=== PATIENT | female | born 1975 | race Caucasian/White ===

== ENCOUNTER 2018-05-29 14:13 | Day surgery (SDC) | payer OTHER ==
[~2018-05-29 14:13] MED LIST: Dexamethasone 20 MG/5 ML VIAL ONE; Ketorolac Tromethamine 30 MG/ML VIAL ONE; Lidocaine 1% PF 5 ML VIAL ONE; Ondansetron PF 4 MG/2 ML Vial ONE; PHENYLEPHRINE-NS 100 MCG/ML 10 ML SYRINGE ONE; PROPOFOL 200 MG/20 ML VIAL ONE; ePHEDrine 50 MG/ML VIAL ONE
[2018-05-29] MEDS ORDERED: Adacel (T-DAP) 0.5 ML SYRINGE ONE (14:44)
[2018-05-29] MEDS ORDERED: Ondansetron PF 4 MG/2 ML Vial ONE (15:04)
[2018-05-29] MEDS ORDERED: Morphine 4 MG/ML VIAL ONE (15:04)
[2018-05-29 15:06] LABS: #Lymphocytes 1.8 thou/uL (1.20-3.40); #Monocytes 0.4 thou/uL (0.11-0.59); #Neutrophils 8.2 thou/uL (1.40-6.50); %Basophils 0.3 % (0.0-1.0); %Eosinophils 0.4 % (0.0-10.0); %Lymphocytes 16.8 % (21.0-51.0); %Monocytes 3.7 % (0.0-10.0); %Neutrophils 78.7 % (42.0-75.0); Hemoglobin 12.1 g/dL (12.0-16.0); Mean Corpuscular HGB CONC 31.3 g/dL (32.0-36.0); Mean Corpuscular Hemoglobin 29.1 pg (27.0-31.0); Mean Corpuscular Volume 92.9 fL (78.0-98.0); Mean Platelet Volume 8.4 fL (7.4-10.4); Platelet Count 334 thou/uL (130-400); Red Blood Cell (RBC) Count 4.17 mill/uL (4.20-5.40); White Blood Cell (WBC) Count 10.4 thou/uL (4.8-10.8)
[2018-05-29 15:24] LABS: ALT (SGPT) 12 U/L (8-55); AST (SGOT) 15 U/L (5-34); Albumin 4.4 g/dL (3.5-5.0); Alkaline Phosphatase 68 U/L (40-150); Anion Gap 14 mmol/L (10-20); BUN (Urea Nitrogen) 12 mg/dL (7.0-18.7); Bilirubin, Total 0.3 mg/dL (0.2-1.2); Calc. Creatinine Clearance 0 mL/min (70-130); Calcium 9.1 mg/dL (7.8-10.44); Carbon Dioxide 21 mmol/L (22-29); Chloride 108 mmol/L (98-107); Estimated GFR-MDRD 78; Globulin 2.9 g/dL (2.4-3.5); Glucose 97 mg/dL (70-105); Potassium 3.9 mmol/L (3.5-5.1); Protein, Total 7.3 g/dL (6.0-8.3); Sodium 139 mmol/L (136-145)
[2018-05-29] MEDS ORDERED: Neomycin-Polymyxin 1 ML AMP ONE (16:13)
[2018-05-29] MEDS ORDERED: Fentanyl 100 MCG/2 ML VIAL ONE (16:13)
[2018-05-29] MEDS ORDERED: Bupivacaine PF 0.5% 30 ML VIAL ONE (16:13)
[2018-05-29] MEDS ORDERED: Bupivacaine HCl 0.5%/Epinephrine 1:200,000/PF 30 ml Vial ONE (16:13)
[2018-05-29] MEDS ORDERED: Famotidine/PF 20 mg/2ml Vial ONE (16:23)
[2018-05-29] MEDS ORDERED: Midazolam HCl 2 mg/2 ml Vial ONE (16:23)
--- NOTE | 2018-05-29 18:05 | RAD ---
INTRAPROCEDURE FLUOROSCOPY: History: Foreign body removal. Comparison: None. FINDINGS: Four fluoroscopic images demonstrate probable radiopaque foreign body projecting over the distal aspe ct of the first metatarsal. Exposure: 5.83 mGy*cm^2, 8 minutes, 3 seconds. IMPRESSION: Fluoroscopy as above. POS: PPP
--- NOTE | 2018-05-29 20:00 | OP ---
DATE OF PROCEDURE: 05/29/2018 PREOPERATIVE DIAGNOSIS: Foreign body in the right foot (broken needle and remaining thread). POSTOPERATIVE DIAGNOSIS: Foreign body in the right foot (broken needle and remaining thread). PROCEDURE: Removal of foreign body, i.e. needle from the right foot. ANESTHESIA: General. TECHNIQUE: The patient was given preoperative IV antibiotics, taken to the operating room, placed in supine position. Satisfactory general anesthesia was performed. The right foot was sterilely prepped and draped in usual fashion. A tourniquet at the right ankle was raised to 200 mmHg. The patient had a small incision on the plantar lateral aspect of the foot over the 5th metatarsal region. This was opened a little more under fluoroscopic visualization. A hemostat was used to locate one of the portions of the broken needle and was able to be successfully removed. The other broken part of the needle was more dorsal between the 4th and 5th metatarsal heads and very close to the 5th metatarsal head. A separate dorsal incision had to be made and the second part of the needle was located with fluoroscopy and then removed during the exploration for the needle. Also a small amount of thread was located and was removed. The wound was then irrigated with normal saline, closed using 3-0 repeat in the wound was infiltrated with 10 mL of 0.5% Marcaine plain. Sterile dressing was applied. Tourniquet was released. Patient was awakened, extubated, and transferred to recovery room in stable condition. ESTIMATED BLOOD LOSS: Minimal. COMPLICATIONS: None tourniquet time 39 minutes. ACTIVITY: DISCHARGE MEDICATIONS: 1. Bactrim DS one p.o. b.i.d. #14. 2. Cipro 500 mg b.i.d. #14. 3. Tylenol No. 4 One every 6 hours as needed for pain #40. Follow up in my office in 5 days. Job ID: [id number]
== END 2018-05-29 18:22 | disposition home or self-care (01) ==
LOC: ERS 14:13 → SDC 14:59
PROVIDERS: ATTEND Orthopaedic Surgery
PROC: 0JCQ0ZZ Extirpation of Matter from Right Foot Subcutaneous Tissue and Fascia, Open Approach (ICD-10-PCS; principal; 2018-05-29)
DX: S90.851A Superficial foreign body, right foot, initial encounter (principal); W27.3XXA Contact with needle (sewing), initial encounter
CPT/HCPCS: 76000; 80053; 85025; 90715; J0670; J1100; J1885; J2001; J2250; J2270; J2405; J2704; J3010; J3490; S0020; S0028